=== PATIENT | female | born 1990 | race Caucasian/White ===

== ENCOUNTER 2024-12-01 23:46 | Observation (INO) ==
--- NOTE | 2024-12-02 00:20 | Emergency Department Note ---
Impression & Plan Acute appendicitis admit to Dr. Sesay ED Provider Note NAME: JOSE C KELLY AGE: 34 SEX: Female INFORMANT: Patient ED PROVIDER(S): Ro Quiroz DO CHIEF COMPLAINT: abdominal pain PLAN: Disposition: admit to Dr. Sesay to go to the OR MEDICAL DECISION MAKING: This is a 34-year-old female patient who presents to the emergency department with persistent abdominal pain since 2 PM this afternoon. Patient has tried taking OTC medications with no relief. She states that patient notes exacerbation of symptoms with moving from [id number] while in bed. Pain seems to be periumbilical and more in the right lower quadrant. Patient denies ever having pain like this in the past. Last menstrual period was 1 week ago. Laboratory studies reveal a white blood cell count of 17 point17.1. H&H were stable. Glucose was 102. Renal function was normal. Patient's pain was treated with doses of IV Dilaudid which gave moderate relief of her symptoms. She was kept n.p.o. and started on normal saline drip. Patient presented significantly hypertensive initially but blood pressure came down nicely after receiving IV analgesia. CT scan of the abdomen/pelvis revealed findings that were consistent with acute appendicitis. I discussed the case with the surgeon on-call and they will evaluate for further inpatient care and surgery. Care/management discussed with: health safety and environment manager and surgeon on-call Triage Nursing notes: reviewed and agree With them. Vital Signs: reviewed and remarkable for hypertension Additional History obtained from: significant other at the bedside Differential Diagnosis: ovarian torsion, appendicitis, colitis, ureteral colic, diverticulitis Diagnostics, independently interpreted by me: Imaging studies: CT scan of the abdomen/pelvis: As per [facility] HPI: 34 year old Female arrives for evaluation of abdominal pain. she has persistent abdominal pain since 2 PM this afternoon. Patient has tried taking OTC medications with no relief. She states that patient notes exacerbation of symptoms with moving from [id number] while in bed. Pain seems to be periumbilical and more in the right lower quadrant PAST MEDICAL HISTORY: Celena's, disease PAST SURGICAL HISTORY: no intra-abdominal surgeries HOME MEDICATIONS: see list ALLERGIES: see list VITALS: See Below PHYSICAL EXAMINATION: HEENT: Head - normocephalic and atraumatic. Pupils are equal, round, and reactive to light. Extraocular eye muscles are intact, and sclera are anicteric. Nose - moist nasal mucosa without discharge. Mouth - moist buccal mucosa. Oropharynx is nonerythematous and there is no tonsillar exudate or edema noted. Neck: Supple; no Cervical lymphadenopathy or nuchal rigidity Heart: Regular rate and rhythm. There is a normal S1 and S2 with no murmurs, clicks, or gallops appreciated. Lungs: Clear to auscultation bilaterally with no wheezes, rales, or rhonchi. Abdomen: Soft, exquisitely tender to palpation just inferior to the umbilicus and off to the right. There are no palpable pulsatile masses or hepatosplenomegaly. There is no guarding, rigidity, or rebound noted. Extremities: No evidence of cyanosis, clubbing, or edema. There are easily palpable peripheral pulses. Skin: warm and dry with good turgor and no rashes. Emergency department treatment: speech language therapist, IV Zofran, IV Dilaudid, IV normal saline drip, IV Dilaudid Emergency Department course: The patient was evaluated in room A-10. A complete history and physical was performed. An order was placed for continuous cardiac monitoring. IV lock was initiated and labs were drawn as above. The patient was medicated with IV Zofran and IV Dilaudid for her pain. She will go for CT scan of the abdomen/pelvis. upon returning from radiology, I reviewed the results of the labs with the patient. She was started on a normal saline drip. She was kept NPO. I reviewed the results of the CT with the patient. I discussed the case with Dr. Sesay and he will admit the patient Past Med/Surg History Problem List (Updated 12/02/24 @ 04:31 by Ro Quiroz DO) Acute appendicitis (Acute) Social History (System 11/03/24 @ 14:48 by Sulema Starkey) Smoking Status: Never smoker Preferred Language: Turkish Feels Safe at Home: Yes Allergies Allergies Allergy/AdvReac Type Severity Reaction Status Date / Time peanut Allergy Severe THROAT Verified 12/02/24 00:15 CLOSES--EAT LARGE AMT, HIVES--EAT SMALL AMT Home Meds Previous Rx's Medication Instructions Recorded levothyroxine 50 mcg capsule 50 mcg PO DAILY #90 caps 06/09/25 Results & Data (ED) Vital Signs Vital Signs - 24 hr 12/01/24 23:50 12/02/24 00:29 12/02/24 00:39 Temperature 36.6 C Temperature Source Temporal Artery Scan Pulse Rate 67 55 L 56 L Pulse Rate [Apical] Pulse Rate from SpO2 Sensor Pulse Rhythm Regular Regular Pulse Rhythm [Apical] Pulse Strength Normal Pulse Strength [Apical] Respiratory Rate 18 18 Respiratory Effort / Characteristics Non-Labored Spontaneous Respiratory Depth Normal Respiratory Pattern Regular Blood Pressure 176/108 H Blood Pressure [Right Arm] Blood Pressure Mean 130 Blood Pressure Mean [Right Arm] Blood Pressure Position Sitting Blood Pressure Position [Right Arm] Pulse Oximetry 98 95 Oxygen Delivery Method Room Air Room Air Sepsis Recent Fever Within 48 Hours No Sepsis New/Unexplained Change in Mental Status N/A Sepsis Action Taken by Nursing No Action Required 12/02/24 00:45 12/02/24 00:51 12/02/24 01:09 Temperature Temperature Source Pulse Rate 52 L 52 L 68 Pulse Rate [Apical] Pulse Rate from SpO2 Sensor 52 L 52 L 70 Pulse Rhythm Pulse Rhythm [Apical] Pulse Strength Pulse Strength [Apical] Respiratory Rate 15 16 17 Respiratory Effort / Characteristics Respiratory Depth Respiratory Pattern Blood Pressure Blood Pressure [Right Arm] Blood Pressure Mean Blood Pressure Mean [Right Arm] Blood Pressure Position Blood Pressure Position [Right Arm] Pulse Oximetry 97 93 97 Oxygen Delivery Method Sepsis Recent Fever Within 48 Hours Sepsis New/Unexplained Change in Mental Status Sepsis Action Taken by Nursing 12/02/24 01:10 12/02/24 01:10 12/02/24 01:18 Temperature Temperature Source Pulse Rate 51 L Pulse Rate [Apical] Pulse Rate from SpO2 Sensor 50 L Pulse Rhythm Pulse Rhythm [Apical] Pulse Strength Pulse Strength [Apical] Respiratory Rate 12 Respiratory Effort / Characteristics Respiratory Depth Respiratory Pattern Blood Pressure 144/79 H 144/79 H Blood Pressure [Right Arm] Blood Pressure Mean 104 104 Blood Pressure Mean [Right Arm] Blood Pressure Position Blood Pressure Position [Right Arm] Pulse Oximetry 96 Oxygen Delivery Method Sepsis Recent Fever Within 48 Hours Sepsis New/Unexplained Change in Mental Status Sepsis Action Taken by Nursing 12/02/24 01:24 12/02/24 01:46 12/02/24 02:00 Temperature Temperature Source Pulse Rate 52 L Pulse Rate [Apical] 81 Pulse Rate from SpO2 Sensor 51 L Pulse Rhythm Pulse Rhythm [Apical] Regular Pulse Strength Pulse Strength [Apical] Normal Respiratory Rate 14 18 Respiratory Effort / Characteristics Non-Labored Respiratory Depth Normal Respiratory Pattern Regular Blood Pressure 143/78 H Blood Pressure [Right Arm] 143/78 H Blood Pressure Mean 112 Blood Pressure Mean [Right Arm] 99 Blood Pressure Position Blood Pressure Position [Right Arm] Sitting Pulse Oximetry 98 98 Oxygen Delivery Method Room Air Sepsis Recent Fever Within 48 Hours Sepsis New/Unexplained Change in Mental Status Sepsis Action Taken by Nursing 12/02/24 02:15 12/02/24 02:21 12/02/24 02:42 Temperature Temperature Source Pulse Rate 53 L 54 L 52 L Pulse Rate [Apical] Pulse Rate from SpO2 Sensor 53 L 54 L 52 L Pulse Rhythm Pulse Rhythm [Apical] Pulse Strength Pulse Strength [Apical] Respiratory Rate 12 16 12 Respiratory Effort / Characteristics Respiratory Depth Respiratory Pattern Blood Pressure Blood Pressure [Right Arm] Blood Pressure Mean Blood Pressure Mean [Right Arm] Blood Pressure Position Blood Pressure Position [Right Arm] Pulse Oximetry 100 99 95 Oxygen Delivery Method Sepsis Recent Fever Within 48 Hours Sepsis New/Unexplained Change in Mental Status Sepsis Action Taken by Nursing 12/02/24 02:51 12/02/24 03:00 12/02/24 03:00 Temperature Temperature Source Pulse Rate 51 L Pulse Rate [Apical] 52 L Pulse Rate from SpO2 Sensor 51 L Pulse Rhythm Pulse Rhythm [Apical] Pulse Strength Pulse Strength [Apical] Respiratory Rate 12 16 Respiratory Effort / Characteristics Respiratory Depth Respiratory Pattern Blood Pressure 133/76 Blood Pressure [Right Arm] 133/76 Blood Pressure Mean 106 Blood Pressure Mean [Right Arm] 95 Blood Pressure Position Blood Pressure Position [Right Arm] Pulse Oximetry 96 97 Oxygen Delivery Method Room Air Sepsis Recent Fever Within 48 Hours Sepsis New/Unexplained Change in Mental Status Sepsis Action Taken by Nursing 12/02/24 03:00 12/02/24 03:00 12/02/24 03:21 Temperature Temperature Source Pulse Rate 58 L 50 L Pulse Rate [Apical] Pulse Rate from SpO2 Sensor 57 L 50 L Pulse Rhythm Pulse Rhythm [Apical] Pulse Strength Pulse Strength [Apical] Respiratory Rate 13 13 Respiratory Effort / Characteristics Respiratory Depth Respiratory Pattern Blood Pressure 133/76 Blood Pressure [Right Arm] Blood Pressure Mean 106 Blood Pressure Mean [Right Arm] Blood Pressure Position Blood Pressure Position [Right Arm] Pulse Oximetry 98 95 Oxygen Delivery Method Sepsis Recent Fever Within 48 Hours Sepsis New/Unexplained Change in Mental Status Sepsis Action Taken by Nursing 12/02/24 03:36 12/02/24 03:42 12/02/24 04:00 Temperature Temperature Source Pulse Rate 51 L 51 L Pulse Rate [Apical] 50 L Pulse Rate from SpO2 Sensor 51 L 50 L Pulse Rhythm Pulse Rhythm [Apical] Pulse Strength Pulse Strength [Apical] Respiratory Rate 12 12 16 Respiratory Effort / Characteristics Respiratory Depth Respiratory Pattern Blood Pressure Blood Pressure [Right Arm] 132/72 Blood Pressure Mean Blood Pressure Mean [Right Arm] 92 Blood Pressure Position Blood Pressure Position [Right Arm] Pulse Oximetry 96 95 96 Oxygen Delivery Method Room Air Sepsis Recent Fever Within 48 Hours Sepsis New/Unexplained Change in Mental Status Sepsis Action Taken by Nursing 12/02/24 04:00 12/02/24 04:00 Temperature Temperature Source Pulse Rate Pulse Rate [Apical] Pulse Rate from SpO2 Sensor Pulse Rhythm Pulse Rhythm [Apical] Pulse Strength Pulse Strength [Apical] Respiratory Rate Respiratory Effort / Characteristics Respiratory Depth Respiratory Pattern Blood Pressure 132/72 132/72 Blood Pressure [Right Arm] Blood Pressure Mean 93 93 Blood Pressure Mean [Right Arm] Blood Pressure Position Blood Pressure Position [Right Arm] Pulse Oximetry Oxygen Delivery Method Sepsis Recent Fever Within 48 Hours Sepsis New/Unexplained Change in Mental Status Sepsis Action Taken by Nursing Laboratory Data 12/02/24 00:12 12/02/24 00:12 Lab Results 12/02/24 12/02/24 12/02/24 Range/Units 00:12 00:16 00:21 WBC 17.17 H (4.8-10.8) K/ul RBC 4.40 (4.20-5.40) M/uL Hgb 13.1 (12.0-16.0) g/dl Hct 39.1 (37.0-47.0) % MCV 88.9 (80.0-100.0) fL MCH 29.8 (25.0-34.0) pg MCHC 33.5 (32.0-36.0) g/dL RDW Std Deviation 41.5 (36.4-46.3) fL RDW Coeff of [place] 12.8 (11.5-14.5) % Plt Count 201 (130-400) K/uL MPV 10.0 (9.4-12.4) fL Immature Gran % (Auto) 0.3 % Neut % (Auto) 79.9 % Lymph % (Auto) 11.6 % [place] % (Auto) 5.9 % Eos % (Auto) 1.8 % Baso % (Auto) 0.5 % Neut # (Auto) 13.71 H (1.40-6.50) K/uL Lymph # (Auto) 1.99 (1.20-3.40) K/uL [place] # (Auto) 1.02 H (0.11-0.59) K/uL Eos # (Auto) 0.31 (0.00-0.50) K/uL Baso # (Auto) 0.08 (0.00-0.20) K/uL Immature Gran # (Auto) 0.06 (0.01-0.20) K/uL Sodium 135 L (136-145) mmol/L Potassium 3.7 (3.5-5.1) mmol/L Chloride 102 (98-107) mmol/L Carbon Dioxide 25 (21-32) mmol/L Anion Gap 8 (3-11) BUN 15 (6-23) mg/dl Creatinine 0.90 (0.6-1.2) mg/dl Est Cr Clr Drug Dosing 72.1 ml/min eGFR 85.50 BUN/Creatinine Ratio 16.7 (10-20) Glucose 102 H (70-99(Fasting)) mg/dl Calcium 9.4 (8.6-10.3) mg/dl Total Bilirubin 0.5 (0.2-1.0) mg/dl AST 15 (13-39) U/L ALT 17 (7-52) U/L Alkaline Phosphatase 50 (34-104) U/L Total Protein 7.7 (6.0-8.3) gm/dl Albumin 4.5 (3.4-5.0) gm/dl Globulin 3.2 (2.5-4.0) gm/dl Albumin/Globulin Ratio 1.4 (0.9-2) Lipase 20 (11-82) U/L Urine Color Yellow Urine Appearance Clear (Clear) Urine pH 7.0 (4.5-7.5) Ur Specific [place] 1.011 (1.000-1.030) Urine Protein Negative (Negative) Urine Glucose (UA) Negative (Negative) Urine Ketones Negative (Negative) Urine Blood Negative (Negative) Urine Nitrite Negative (Negative) Urine Bilirubin Negative (Negative) Urine Urobilinogen Negative (Negative) Ur Leukocyte Esterase Negative (Negative) POC Ur Test NEG (NEG) Urine Comment Administered Medications Sodium Chloride (Nss) 500 mls @ 125 mls/hr IV .Q4H MONY Stop: 12/02/24 06:29 Last Admin: 12/02/24 02:21 Dose: 125 mls/hr Documented By: LYNNE Discontinued Medications Hydromorphone HCl (Hydromorphone Inj 0.5 Mg/0.5 Ml Syr) 0.5 mg IV NOW STA Stop: 12/02/24 00:13 Last Admin: 12/02/24 00:24 Dose: 0.5 mg Documented By: LYNNE Hydromorphone HCl (Hydromorphone Inj 0.5 Mg/0.5 Ml Syr) 0.5 mg IV NOW STA Stop: 12/02/24 02:20 Last Admin: 12/02/24 02:21 Dose: 0.5 mg Documented By: LYNNE Piperacillin Sod/Tazobactam Sod (Zosyn) 4.5 gm in 100 mls @ 200 mls/hr IV NOW STA; Protocol Stop: 12/02/24 03:10 Last Infusion: 12/02/24 03:34 Dose: Infused Documented By: Admin: 12/02/24 02:58 Dose: 200 mls/hr Documented By: MARTI Ioversol (Optiray 320 100ml) 93 ml IV ONCE ONE Stop: 12/02/24 01:06 Last Admin: 12/02/24 01:07 Dose: 93 ml Documented By: MADDY Ondansetron HCl (Ondansetron Inj 2 Mg/Ml 2 Ml Vial) 4 mg IV NOW STA Stop: 12/02/24 00:13 Last Admin: 12/02/24 00:24 Dose: 4 mg Documented By: LYNNE Imaging Data Radiologist's Impression: Abdomen/Pelvis CT 12/02/24 00:13 EXAM: CT abd pelvis IV con only CLINICAL HISTORY: Eval for appy TECHNIQUE: CT of the abdomen and pelvis was performed with 93ml Opitray-320mg/ml IV contrast only, with the following protocol: axial images with, and reconstructed coronal and sagittal images. One of the following dose reduction techniques was utilized for this exam: Automated exposure control, adjustment of the mA and/or kV according to patient size, and use of iterative reconstruction. COMPARISON: No prior studies available for comparison. FINDINGS: Appendix: The appendix is swollen (reaching 12.5 mm in caliber), seen at a retrocecal location and directed backwards towards the presacral space. It harbors appendicoliths, and there is mary-appendiceal fat stranding. No evidence of appendiceal abscess or perforation. Liver: Mildly enlarged (17.5 cm in the long axis). Normal in shape and density. Right lobe segment 8, well-defined hypodense focal lesion, measuring 4 mm. Hepatic vasculature and biliary ducts are unremarkable. Gallbladder and Biliary System: The gallbladder is normal in size and shape. No wall thickening, pericholecystic fluid, or gallstones. The common bile duct is normal in caliber without dilation. Pancreas: The pancreatic head, body, and tail are visualized and appear normal in size and density. No pancreatic masses or calcifications. The pancreatic duct is not dilated. Spleen: Normal in size, shape, and density. No splenic lesions or masses. Kidneys and Adrenal Glands: Both kidneys are normal in size, shape, position, and cortical thickness. No renal calculi or hydronephrosis. The adrenal glands are unremarkable. Urinary Bladder: Normal in contour and wall thickness. No intraluminal lesions. Uterus and Cervix: Normal in size and contour. No masses or abnormal thickening. Ovaries: Not well visualized, but no gross adnexal masses. Peritoneal and Retroperitoneal Structures: Mild pelvic free fluid. No encysted pelviabdominal collections. No free intraperitoneal air. No pathological lymphadenopathy. Bowel: The visualized bowel loops are normal in caliber and appearance. No evidence of bowel obstruction or wall thickening. Bones and Soft Tissues: Pelvic bones and soft tissues are unremarkable. No fractures or abnormal masses were identified. IMPRESSION: 1. Acute appendicitis is highly considered. 2. Mild pelvic free fluid. 3. Mild hepatomegaly. Tiny segment 8 focal lesion, likely a simple cyst. Electronically signed by Cristian Underwood 12-02-2024 02:03 AM Discharge Plan Visit Data Chief Complaint: Abdominal Pain Stated Complaint: ABD PAIN ED Provider: Ro Quiroz Discharge Problem: Acute appendicitis Condition: Fair Forms Stand Alone Forms: [facility] Prescriptions Prescriptions: No Action levothyroxine 50 mcg capsule 50 mcg PO DAILY Qty: 90 3RF Referrals Referrals: PCP,NO [Primary Care Provider] -
[2024-12-02] MEDS: ONDANSETRON INJ 2 MG/ML 2 ML VIAL IV STA (00:24)
[2024-12-02] MEDS: HYDROmorphone INJ 0.5 MG/0.5 ML SYR IV STA ×2 (00:24→02:21)
[2024-12-02 00:29] LABS: Appearance Urine Clear (Clear); Glucose Urine UA Negative (Negative)
[2024-12-02 00:34] LABS: Hematocrit (blood only) 39.1 % (37.0-47.0); Hemoglobin 13.1 g/dl (12.0-16.0); Immature Granulocytes # (auto) 0.06 K/uL (0.01-0.20); Immature Granulocytes % (auto) 0.3 %; Mean Corpuscular Hemoglobin 29.8 pg (25.0-34.0); Mean Corpuscular Volume 88.9 fL (80.0-100.0); Platelet Count 201 K/uL (130-400); RDW Standard Deviation 41.5 fL (36.4-46.3); Red Blood Count 4.40 M/uL (4.20-5.40); White Blood Count 17.17 K/ul (4.8-10.8)
[2024-12-02 00:52] LABS: Alanine Aminotransferase 17.0 U/L (7-52); Albumin Globulin Ratio 1.4 (0.9-2); Alkaline Phosphatase 50.0 U/L (34-104); Anion Gap 8.0 (3-11); Bilirubin,Total 0.5 mg/dl (0.2-1.0); Blood Urea Nitrogen 15.0 mg/dl (6-23); Calcium 9.4 mg/dl (8.6-10.3); Carbon Dioxide 25.0 mmol/L (21-32); Chloride 102.0 mmol/L (98-107); Creatinine Clr Calc Pharmacy 72.1 ml/min; Globulin 3.2 gm/dl (2.5-4.0); Glucose 102.0 mg/dl (70-99(Fasting)); Lipase 20.0 U/L (11-82); Potassium 3.7 mmol/L (3.5-5.1); Sodium 135.0 mmol/L (136-145); Total Protein 7.7 gm/dl (6.0-8.3)
[2024-12-02] MEDS: OPTIRAY 320 100ml IV ONE (01:07)
--- NOTE | 2024-12-02 02:04 | CT Scan Report ---
EXAM: CT abd pelvis IV con only CLINICAL HISTORY: Eval for appy TECHNIQUE: CT of the abdomen and pelvis was performed with 93ml Opitray-320mg/ml IV contrast only, with the following protocol: axial images with, and reconstructed coronal and sagittal images. One of the following dose reduction techniques was utilized for this exam: Automated exposure control, adjustment of the mA and/or kV according to patient size, and use of iterative reconstruction. COMPARISON: No prior studies available for comparison. FINDINGS: Appendix: The appendix is swollen (reaching 12.5 mm in caliber), seen at a retrocecal location and directed backwards towards the presacral space. It harbors appendicoliths, and there is mary-appendiceal fat stranding. No evidence of appendiceal abscess or perforation. Liver: Mildly enlarged (17.5 cm in the long axis). Normal in shape and density. Right lobe segment 8, well-defined hypodense focal lesion, measuring 4 mm. Hepatic vasculature and biliary ducts are unremarkable. Gallbladder and Biliary System: The gallbladder is normal in size and shape. No wall thickening, pericholecystic fluid, or gallstones. The common bile duct is normal in caliber without dilation. Pancreas: The pancreatic head, body, and tail are visualized and appear normal in size and density. No pancreatic masses or calcifications. The pancreatic duct is not dilated. Spleen: Normal in size, shape, and density. No splenic lesions or masses. Kidneys and Adrenal Glands: Both kidneys are normal in size, shape, position, and cortical thickness. No renal calculi or hydronephrosis. The adrenal glands are unremarkable. Urinary Bladder: Normal in contour and wall thickness. No intraluminal lesions. Uterus and Cervix: Normal in size and contour. No masses or abnormal thickening. Ovaries: Not well visualized, but no gross adnexal masses. Peritoneal and Retroperitoneal Structures: Mild pelvic free fluid. No encysted pelviabdominal collections. No free intraperitoneal air. No pathological lymphadenopathy. Bowel: The visualized bowel loops are normal in caliber and appearance. No evidence of bowel obstruction or wall thickening. Bones and Soft Tissues: Pelvic bones and soft tissues are unremarkable. No fractures or abnormal masses were identified. IMPRESSION: 1. Acute appendicitis is highly considered. 2. Mild pelvic free fluid. 3. Mild hepatomegaly. Tiny segment 8 focal lesion, likely a simple cyst. Electronically signed by Cristian Underwood 12-02-2024 02:03 AM
[2024-12-02] MEDS: SODIUM CHLORIDE 0.9% 500 ML IV SCH (02:21)
[2024-12-02] MEDS ORDERED: ONDANSETRON INJ 2 MG/ML 2 ML VIAL IV PRN (02:25)
[2024-12-02] MEDS ORDERED: MoRPHine SULFATE 2 MG/ML CARP IV PRN ×2 (02:25→11:12)
[2024-12-02] MEDS: 4.5GM X1 IV STA (02:58)
[2024-12-02] MEDS: MoRPHine SULFATE 2 MG/ML CARP IV PRN (04:30)
[2024-12-02] MEDS: LEVOTHYROXINE SODIUM 50 MCG TABLET PO SCH (06:16)
[2024-12-02] MEDS ORDERED: MIDAZOLAM HCL 1 MG/ML 2ML VIAL ONE (07:07)
[2024-12-02] MEDS ORDERED: LIDOCAINE 2% 2 ML VIAL/AMP(20MG/ML) INFIL ONE (07:07)
[2024-12-02] MEDS ORDERED: PROPOFOL IV EMULSION 10 MG/ML 20 ML VIAL IV ONE (07:08)
[2024-12-02] MEDS ORDERED: DEXAMETHASONE SOD INJ 4 MG/ML VIAL ONE (07:08)
[2024-12-02] MEDS ORDERED: METOCLOPRAMIDE HCL INJ 5 MG/ML 2 ML VIAL ONE (07:08)
[2024-12-02] MEDS ORDERED: ONDANSETRON INJ 2 MG/ML 2 ML VIAL ONE (07:08)
[2024-12-02] MEDS ORDERED: ROCURONIUM BROMIDE 10 MG/ML 5 ML VIAL IV ONE (07:08)
[2024-12-02] MEDS ORDERED: ACETAMINOPHEN 1000 MG/100 ML IV IV ONE (07:12)
--- NOTE | 2024-12-02 07:16 | Anesthesiology Consultation ---
Date of Service December 02, 2024 Assessment & Plan (1) Encounter for pre-operative examination: Chart Review Chart Review: Acceptable Risk for Surgery History Surgery Operation Date: 12/02/24 06:25 Proposed Procedures p Laparoscopic Appendectomy - Jamar Sesay MD Height/Weight Height: 5 ft 2.99 in Weight: 59.421 kg Allergies Allergy/AdvReac Type Severity Reaction Status Date / Time peanut Allergy Severe THROAT Verified 12/02/24 00:15 CLOSES--EAT LARGE AMT, HIVES--EAT SMALL AMT Medications Home Medications Medication Instructions Recorded Confirmed Last Taken levothyroxine 50 mcg capsule 50 mcg PO DAILY #90 caps 10/23/24 12/02/24 12/01/24 Active Medications Generic Name Dose Route Start Last Admin Trade Name Freq PRN Reason Stop Dose Admin Levothyroxine Sodium 50 mcg 12/02/24 06:30 12/02/24 06:16 Levothyroxine Sodium 50 Mcg Tablet PO 01/01/25 06:29 50 mcg DAILYBB MONY Administration Morphine Sulfate 2 mg 12/02/24 02:25 12/02/24 04:30 Morphine Sulfate 2 Mg/Ml Carp IV 12/16/24 02:24 2 mg Q3H PRN Administration Pain (6,7,8,9,10) Past Medical History Medical History Celena thyroiditis Past Surgical History Surgical History Hx of hand surgery Hx of wisdom tooth extraction Social History Smoking Status: Never smoker Hx Alcohol Use: No Hx Substance Use: No Physical Exam Vital Signs Last Vital Signs Temp 36.3 C L 12/02/24 06:02 Pulse 69 12/02/24 06:02 Resp 17 12/02/24 06:02 BP 147/86 H 12/02/24 06:02 Pulse Ox 100 12/02/24 06:02 O2 Del Method Room Air 12/02/24 06:02 Testing Laboratory Results 12/02/24 00:12 12/02/24 00:12 Urine Color Yellow 12/02/24 00:16 Urine Appearance Clear (Clear) 12/02/24 00:16 Urine pH 7.0 (4.5-7.5) 12/02/24 00:16 Ur Specific [place] 1.011 (1.000-1.030) 12/02/24 00:16 Urine Protein Negative (Negative) 12/02/24 00:16 Urine Glucose (UA) Negative (Negative) 12/02/24 00:16 Urine Ketones Negative (Negative) 12/02/24 00:16 Urine Nitrite Negative (Negative) 12/02/24 00:16 Ur Leukocyte Esterase Negative (Negative) 12/02/24 00:16 12/02/24 00:21 POC Ur Test NEG
[2024-12-02] MEDS: PIPERACILLIN/TAZOBACTAM 4.5 GM/100 ML BAG IV SCH (08:16)
[2024-12-02] MEDS: ACETAMINOPHEN 325 MG TAB PO PRN (08:22)
--- NOTE | 2024-12-02 08:40 | History & Physical Report ---
Date of Service December 02, 2024 Assessment & Plan (1) Acute appendicitis: Plan: IV zosyn IVF to OR for lap appendectomy Admission and Anticipated Discharge Date Admission Date: December 02, 2024 History of Present Illness Primary Care Provider: NO PCP This is a 34YO female presented to ED with acute abdominal pain. She has admitted last night after CT scan showed acute appendicitis with an appendicolith and possibly retrocecal. She denies fevers or chills. She has had nausea. Allergies Allergy/AdvReac Type Severity Reaction Status Date / Time peanut Allergy Severe THROAT Verified 12/02/24 00:15 CLOSES--EAT LARGE AMT, HIVES--EAT SMALL AMT Home Medications Medication Instructions Recorded Confirmed Type levothyroxine 50 mcg capsule 50 mcg PO DAILY #90 caps 10/23/24 12/02/24 Rx Past Med/Surg History Problem List (Updated 12/02/24 @ 07:15 by Caesar Pond MD) Encounter for pre-operative examination Acute appendicitis (Acute) Medical History Celena thyroiditis Surgical History Hx of hand surgery Hx of wisdom tooth extraction Social History (System 11/03/24 @ 14:48 by Sulema Starkey) Smoking Status: Never smoker Hx Alcohol Use: No Hx Substance Use: No Preferred Language: Hebrew Communication Ability: Effective Communication Center Coordinator Required: No Beliefs That Will Affect Care: None Current Living Situation: Spouse Feels Safe at Home: Yes Safety Concerns: Feels Safe At This Time Review of Systems no fever and no chills no problem reported no cough and no dyspnea no chest pain + abdominal pain and + nausea; no vomiting and no change in bowel habits no dysuria no back pain no problem reported no localized weakness and no generalized weakness no behavioral changes no problem reported no easy bleeding and no easy bruising Physical Exam Constitutional: WD/WN, vitals as above Eyes: no scleral abnormality ENMT: external ear and nose normal, oropharynx normal Neck: trachea midline Respiratory: normal respiratory effort, lungs clear to auscultation Cardiovascular: RRR, no murmur, no edema Gastrointestinal (Abdomen): Inspection/Auscultation: abdomen normal to inspection and normal bowel sounds; abdomen not distended Percussion /Palpation: + abdomen tender and abdomen soft; no guarding and abdomen not rigid Musculoskeletal: Head/Neck/Chest: normocephalic and head atraumatic Skin: no rashes, warm and dry Results & Data Vital Signs (Past 12 Hours) Vital Signs Temp Pulse Pulse Pulse Resp BP BP 12/02/24 08:15 36.7 C 59 L 16 127/77 12/02/24 06:02 36.3 C L 69 17 147/86 H 12/02/24 05:51 12/02/24 05:28 12/02/24 04:36 54 L 12/02/24 04:21 50 L 14 12/02/24 04:00 132/72 12/02/24 04:00 132/72 12/02/24 04:00 50 L 16 132/72 12/02/24 03:42 51 L 12 12/02/24 03:36 51 L 12 12/02/24 03:21 50 L 13 12/02/24 03:00 58 L 13 12/02/24 03:00 133/76 12/02/24 03:00 133/76 12/02/24 03:00 52 L 16 133/76 12/02/24 02:51 51 L 12 12/02/24 02:42 52 L 12 12/02/24 02:21 54 L 16 12/02/24 02:15 53 L 12 12/02/24 02:00 143/78 H 12/02/24 01:46 81 18 143/78 H 12/02/24 01:24 52 L 14 12/02/24 01:18 51 L 12 12/02/24 01:10 144/79 H 12/02/24 01:10 144/79 H 12/02/24 01:09 68 17 12/02/24 00:51 52 L 16 12/02/24 00:45 52 L 15 12/02/24 00:39 56 L 12/02/24 00:29 55 L 18 12/01/24 23:50 36.6 C 67 18 176/108 H Pulse Ox O2 Del Method 12/02/24 08:15 100 Room Air 12/02/24 06:02 100 Room Air 12/02/24 05:51 Room Air 12/02/24 05:28 Room Air 12/02/24 04:36 12/02/24 04:21 97 12/02/24 04:00 12/02/24 04:00 12/02/24 04:00 96 Room Air 12/02/24 03:42 95 12/02/24 03:36 96 12/02/24 03:21 95 12/02/24 03:00 98 12/02/24 03:00 12/02/24 03:00 12/02/24 03:00 97 Room Air 12/02/24 02:51 96 12/02/24 02:42 95 12/02/24 02:21 99 12/02/24 02:15 100 12/02/24 02:00 12/02/24 01:46 98 Room Air 12/02/24 01:24 98 12/02/24 01:18 96 12/02/24 01:10 12/02/24 01:10 12/02/24 01:09 97 12/02/24 00:51 93 12/02/24 00:45 97 12/02/24 00:39 12/02/24 00:29 95 Room Air 12/01/24 23:50 98 Room Air Diagnostic Findings EXAM: CT abd pelvis IV con only CLINICAL HISTORY: Eval for appy TECHNIQUE: CT of the abdomen and pelvis was performed with 93ml Opitray-320mg/ml IV contrast only, with the following protocol: axial images with, and reconstructed coronal and sagittal images. One of the following dose reduction techniques was utilized for this exam: Automated exposure control, adjustment of the mA and/or kV according to patient size, and use of iterative reconstruction. COMPARISON: No prior studies available for comparison. FINDINGS: Appendix: The appendix is swollen (reaching 12.5 mm in caliber), seen at a retrocecal location and directed backwards towards the presacral space. It harbors appendicoliths, and there is mary-appendiceal fat stranding. No evidence of appendiceal abscess or perforation. Liver: Mildly enlarged (17.5 cm in the long axis). Normal in shape and density. Right lobe segment 8, well-defined hypodense focal lesion, measuring 4 mm. Hepatic vasculature and biliary ducts are unremarkable. Gallbladder and Biliary System: The gallbladder is normal in size and shape. No wall thickening, pericholecystic fluid, or gallstones. The common bile duct is normal in caliber without dilation. Pancreas: The pancreatic head, body, and tail are visualized and appear normal in size and density. No pancreatic masses or calcifications. The pancreatic duct is not dilated. Spleen: Normal in size, shape, and density. No splenic lesions or masses. Kidneys and Adrenal Glands: Both kidneys are normal in size, shape, position, and cortical thickness. No renal calculi or hydronephrosis. The adrenal glands are unremarkable. Urinary Bladder: Normal in contour and wall thickness. No intraluminal lesions. Uterus and Cervix: Normal in size and contour. No masses or abnormal thickening. Ovaries: Not well visualized, but no gross adnexal masses. Peritoneal and Retroperitoneal Structures: Mild pelvic free fluid. No encysted pelviabdominal collections. No free intraperitoneal air. No pathological lymphadenopathy. Bowel: The visualized bowel loops are normal in caliber and appearance. No evidence of bowel obstruction or wall thickening. Bones and Soft Tissues: Pelvic bones and soft tissues are unremarkable. No fractures or abnormal masses were identified. IMPRESSION: 1. Acute appendicitis is highly considered. 2. Mild pelvic free fluid. 3. Mild hepatomegaly. Tiny segment 8 focal lesion, likely a simple cyst. Code Status & VTE Plan VTE Prophylaxis Plan VTE Prophylaxis will be ordered: Yes
[2024-12-02] MEDS ORDERED: PROMETHAZINE HCL 6.25 MG in SODIUM CHLORIDE 0.9% 50 ML IV PRN (08:57)
[2024-12-02] MEDS ORDERED: KETOROLAC 30 MG/ML VIAL IV PRN (08:57)
[2024-12-02] MEDS ORDERED: ATROPINE SULFATE 0.1 MG/ML 10ML SYR IV PRN (08:57)
[2024-12-02] MEDS ORDERED: PHENYLEPHRINE HCL 10 MG/ML VIAL ONE (09:18)
[2024-12-02] MEDS ORDERED: KETOROLAC 30 MG/ML VIAL ONE (09:23)
[2024-12-02] MEDS: BUPIVACAINE/EPINEPHRINE 0.5% MPF 1:200,000 30 ML VIAL ONE (09:37)
[2024-12-02] MEDS ORDERED: NEOSTIGMINE METHYLSULFATE 1 MG/ML 10ML VIAL ONE (09:39)
[2024-12-02] MEDS ORDERED: GLYCOPYRROLATE 0.2 MG/ML VIAL ONE (09:39)
--- NOTE | 2024-12-02 09:57 | Operative Report ---
Post Operative Report Pre & Post Diagnosis Operation Date: 12/02/24 06:25 Pre-Op Diagnosis: Appendicitis Post-Op Diagnosis: Appendicitis I identified the patient and participated in the time-out.: Yes Procedure Operation Date: 12/02/24 06:25 Actual Procedures p Laparoscopic Appendectomy(Not Applicable) - Jamar Sesay MD Surgeon Jamar Sesay MD Back Roller none Estimated Blood Loss 7 Findings Consistent with Post-Op Diagnosis Specimens appendix to pathology Drains none Anesthesia Type General Complications none Disposition Accompanied Patient To Recovery: No Disposition: Recovery Room Indications This is a 34-year-old female admitted through the ED with acute abdominal pain. She underwent a workup which showed a CT scan with acute appendicitis and an appendicolith. There was also question of a possible retrocecal position. She was admitted placed on IV fluids IV antibiotics and be taken to the OR for laparoscopic appendectomy. She understands all the risks in detail. Description of Procedure The patient was taken to the OR and underwent excellent general anesthesia. Their abdomen was prepped and draped in normal sterile fashion. A transverse supraumbilical incision was made, towel clamps were used to create tension on the abdominal wall as an 11 port was placed in the supraumbilical position, inserted with visualization gently into the peritoneal cavity. Good pneumoperitoneum was achieved to about 15 mmHg pressure. Once this was done, a visualized 12 mm left lower quadrant port , a 5mm suprapubic port , and a 5mm right upper quadrant port were all placed in normal fashion. Patient was then placed in head down and rolled to the left. A good diagnostic lap was perf ormed. They had obvious acute appendicitis. The cecum was grasped with an atraumatic grasper. A grasper was then was then used to grasp the tip of the appendix. The mesoappendix was splayed open and a harmonic scalpel was used to take down the mesoappendix. The base of the appendix was identified and an Endo PARKER stapler was used to transect the appendix at its base. A endobag was then inserted through the left lower quadrant port and the appendix was placed into the bag, The bag was removed through the left lower quadrant port. The appendix was sent for pathologic evaluation. The pneumoperitoneum was re- established after the 12 mm port was replaced. Saline was then used to irrigate the abdomen. There was no active bleeding nor any other abnormalities noted in the abdomen. The patient was then placed back in neutral position, the ports were removed and the pneumoperitoneum decompressed. The 12mm port fascia was then closed using a 0 Vicryl. The skin was then anesthetized with 0.5% Marcaine with epinephrine local. Interrupted Vicryl is used to close the skin. Dermabond was used to reinforce the incisions. The patient tolerated procedure without complications was sent to the postop recovery period of observation. They will be sent to the floor for the rest of their care. I attest to the content of the Intraoperative Record and any orders documented therein. Any exceptions are noted below.
[2024-12-02] MEDS ORDERED: SUGAMMADEX SODIUM 200 MG/2 ML VIAL IV ONE (10:14)
--- NOTE | 2024-12-02 10:46 | Anesthesiology Progress Note ---
Date of Service December 02, 2024 Anesthesia Post Procedure Vital Signs Vital Signs: Temp Pulse Pulse Pulse Resp BP BP 12/02/24 10:40 61 16 128/67 12/02/24 10:30 71 14 128/71 12/02/24 10:22 36.1 C L 84 15 143/93 H 12/02/24 08:15 36.7 C 59 L 16 127/77 12/02/24 06:02 36.3 C L 69 17 147/86 H 12/02/24 05:51 12/02/24 05:28 12/02/24 04:36 54 L 12/02/24 04:21 50 L 14 12/02/24 04:00 132/72 12/02/24 04:00 132/72 12/02/24 04:00 50 L 16 132/72 12/02/24 03:42 51 L 12 12/02/24 03:36 51 L 12 12/02/24 03:21 50 L 13 12/02/24 03:00 58 L 13 12/02/24 03:00 133/76 12/02/24 03:00 133/76 12/02/24 03:00 52 L 16 133/76 12/02/24 02:51 51 L 12 12/02/24 02:42 52 L 12 12/02/24 02:21 54 L 16 12/02/24 02:15 53 L 12 12/02/24 02:00 143/78 H 12/02/24 01:46 81 18 143/78 H 12/02/24 01:24 52 L 14 12/02/24 01:18 51 L 12 12/02/24 01:10 144/79 H 12/02/24 01:10 144/79 H 12/02/24 01:09 68 17 12/02/24 00:51 52 L 16 12/02/24 00:45 52 L 15 12/02/24 00:39 56 L 12/02/24 00:29 55 L 18 12/01/24 23:50 36.6 C 67 18 176/108 H Pulse Ox O2 Del Method O2 Flow Rate 12/02/24 10:40 96 Oxymask 2 12/02/24 10:30 99 Oxymask 4 12/02/24 10:22 100 Oxymask 6 12/02/24 08:15 100 Room Air 12/02/24 06:02 100 Room Air 12/02/24 05:51 Room Air 12/02/24 05:28 Room Air 12/02/24 04:36 12/02/24 04:21 97 12/02/24 04:00 12/02/24 04:00 12/02/24 04:00 96 Room Air 12/02/24 03:42 95 12/02/24 03:36 96 12/02/24 03:21 95 12/02/24 03:00 98 12/02/24 03:00 12/02/24 03:00 12/02/24 03:00 97 Room Air 12/02/24 02:51 96 12/02/24 02:42 95 12/02/24 02:21 99 12/02/24 02:15 100 12/02/24 02:00 12/02/24 01:46 98 Room Air 12/02/24 01:24 98 12/02/24 01:18 96 12/02/24 01:10 12/02/24 01:10 12/02/24 01:09 97 12/02/24 00:51 93 12/02/24 00:45 97 12/02/24 00:39 12/02/24 00:29 95 Room Air 12/01/24 23:50 98 Room Air Transfer of Care Handoff Completed per policy Notes Mental Status: alert / awake / arousable Patient Amnestic to Procedure: Yes Nausea / Vomiting: adequately controlled Pain: adequately controlled Airway Patency, RR, SpO2: stable & adequate BP & HR: stable & adequate Hydration State: stable & adequate Anesthetic Complications: no major complications apparent
[2024-12-02] MEDS ORDERED: MoRPHine SULFATE 4 MG/ML 1 ML CARP\\VIAL IV PRN (11:12)
[2024-12-02] MEDS ORDERED: PROMETHAZINE 25 MG/51 ML BAG IV PRN (11:12)
[2024-12-02] MEDS: FAMOTIDINE/PF 20 MG/2 ML VIAL IV ONE (11:17)
[2024-12-02] MEDS: LACTATED RINGER'S 500 ML IV SCH (11:17)
[2024-12-03 07:12] VITALS: BP 99/56; PULSE 51; RESP 16; TEMP 97.7; O2SAT 96
--- NOTE | 2024-12-03 10:55 | Discharge Summary ---
Date of Service December 03, 2024 Admission HPI Per Admitting Provider This is a 34YO female presented to ED with acute abdominal pain. She has admitted last night after CT scan showed acute appendicitis with an appendicolith and possibly retrocecal. She denies fevers or chills. She has had nausea. Principal Diagnosis acute appendicitis Discharge Exam Constitutional WD/WN, vitals as above Respiratory normal respiratory effort Cardiovascular RRR, no murmur, no edema Gastrointestinal (Abdomen) Inspection/Auscultation: abdomen normal to inspection and + abdominal surgical incision; abdomen not distended Percussion/Palpation: + abdomen tender and abdomen soft Skin no rashes, warm and dry Discharge Data Allergies Allergy/AdvReac Type Severity Reaction Status Date / Time peanut Allergy Severe THROAT Verified 12/02/24 00:15 CLOSES--EAT LARGE AMT, HIVES--EAT SMALL AMT Consultations 12/02/24 02:22 ED Decision to Admit Stat Procedures Performed Operation Date: 12/02/24 06:25 Actual Procedures p Laparoscopic Appendectomy(Not Applicable) - Jamar Sesay MD Ordered Studies 12/02/24 00:13 CT abd pelvis IV con only Stat Hospital Course (1) Acute appendicitis: Patient was admitted through the ED after workup for abdominal pain which showed acute appendicitis. She was placed on IV fluids IV antibiotics. She was taken to the OR for laparoscopic appendectomy which she tolerated well. She was doing well postop with good pain control, ambulating well, and good pain control. She is discharged home on postoperative day #1 Total Time Total Time Spent Total Time Spent (In Minutes): 15 Total Time Includes: Examination of the Patient, Discharge Planning and Medication Reconciliation Discharge Plan Discharge Items Patient Disposition: Home - Self-Care Reason For Visit: APPENDICITIS Discharge Diagnosis: Acute appendicitis Condition on Discharge: Fair Activity: Per Instructions section Lifting: No more than 25 pounds Lifting Comment: 4 weeks Bathing: No limitations Bathing Comment: Shower avoid submerging incisions Sexual Activity: When tolerated Exercise/Sports: Wait until after follow-up appointment Driving/Machine Use: Resume 1 day after discharge Weightbearing: Full weightbearing Non-emergency contact: Surgeon Call non-emergency contact if: your pain is concerning for you, your temperature is above 101.5 and your wound pain has increased Follow-up/Referrals: PCP,NO [Primary Care Provider] - Diet: Regular Addtl Attending Provider Instructions: Post-Surgical ~Discharge Instructions Activity Recommendations: - Lifting limitation: (<20 pounds for 4 weeks), - Exercise/sex/sports limit: (nonstrenuous for 2 weeks), - Driving or machine use limit: (none after 3 days post-op as long as pain free and no longer taking narcotic pain medication), - Shower/bathe limit: (may shower tomorrow, no submerging incisions underwater for 2 weeks, Dermabond will peel off in 1-2 weeks) - Call the surgeon's office with any questions or concerns - ; ex. temperature higher than 101.5 degrees F, excessive bleeding or pain Diet: - Resume previous diet, regular as tolerated. Medications: - Resume previous medications unless instructed otherwise by your surgeon. - May alternate extra strength Tylenol and Ibuprofen as needed for mild to moderate pain - Tylenol 650 mg every 6 hours as needed - Ibuprofen 600 mg every 6 hours as needed, take with food - Percocet 1 every 6 hours, as needed for moderate to severe pain. Narcotics may cause nausea on an empty stomach, please eat before taking pain pills - Recommend daily stool softener (Colace) while taking narcotic pain medication to prevent constipation or straining. Drink plenty of water daily. Follow-up: - If not already scheduled, please call the office to schedule a two week follow-up appointment. Office number Pending Studies at Discharge: No Stand-Alone Forms: My [facility], Smoking Cessation Medications and DC Order Prescriptions: New oxycodone-acetaminophen [Percocet] 5-325 mg tablet 1 tab PO Q6H PRN (Reason: pain) Qty: 14 0RF Continued levothyroxine 50 mcg capsule 50 mcg PO DAILY Qty: 90 3RF Discharge Orders: Discharge Order (Routine); Ordered 12/03/24 Ordered By: Jamar Sesay Admission Data Admit Date/Time: 12/02/24 02:25 Attending Provider: Jamar Sesay Admit Provider: Jamar Sesay Primary Care Provider: PCP,NO Other Providers: Jamar Sesay
== END 2024-12-03 11:49 | disposition home or self-care (01) ==
LOC: EDINP 23:46 → ED 23:46 → 3E 12-02 05:26